=== PATIENT | male | born 1965 | race Caucasian/White ===

== ENCOUNTER → 2017-01-28 | Outpatient (CLI) | payer BC, OTHER ==
[~2017-01-28] MED LIST: MULT-516 PO; NONE PER PT
== END ==
LOC: STAR 13:51
PROVIDERS: ATTEND Orthopaedic Surgery
DX: Z02.9 Encounter for administrative examinations, unspecified (principal)

== ENCOUNTER 2017-02-02 09:47 | Day surgery (SDC) | payer BC, OTHER ==
[~2017-02-02] VITALS: Ht 180.3 cm; Wt 80.0 kg
[2017-02-02] MEDS ORDERED: MIDAZOLAM 1 MG/ML, 2ML ONE (10:43)
[2017-02-02] MEDS ORDERED: FENTANYL PF 100 MCG/2ML ONE (10:43)
[2017-02-02] MEDS ORDERED: LACTATED RINGERS 1,000 ML IV SCH (10:51)
[2017-02-02 10:52] VITALS: BP 117/77
[2017-02-02] MEDS ORDERED: BUPIVACAINE/PF 0.5% ONE (11:18)
[2017-02-02] MEDS ORDERED: EPINEPHRINE 1 MG/ML, 1ML ONE (11:18)
[2017-02-02] MEDS ORDERED: KETOROLAC 30 MG/1 ML ONE (11:28)
[2017-02-02] MEDS ORDERED: ONDANSETRON 2MG/ML, 2ML ONE (11:28)
[2017-02-02] MEDS ORDERED: DEXAMETHASONE 4 MG/ML, 1ML ONE (11:28)
[2017-02-02] MEDS ORDERED: CEFAZOLIN 1,000 MG ONE (11:28)
[2017-02-02] MEDS ORDERED: PROPOFOL 10 MG/ML, 20ML ONE (11:28)
[2017-02-02] MEDS ORDERED: BUPIVACAINE/PF 0.5% INFIL ONE (11:53)
[2017-02-02] MEDS ORDERED: EPINEPHRINE 1 MG/ML, 1ML INFIL ONE (11:54)
[2017-02-02] MEDS ORDERED: PROMETHAZINE 25 MG/ML, 1ML IV PRN (12:00)
[2017-02-02] MEDS ORDERED: LABETALOL 5MG/ML, 20ML IV PRN (12:00)
[2017-02-02] MEDS ORDERED: FENTANYL PF 100 MCG/2ML IV PRN (12:00)
[2017-02-02] MEDS ORDERED: MEPERIDINE/PF 25MG/0.5ML IVPush PRN (12:00)
[2017-02-02] MEDS ORDERED: ACETAMINOPHEN 325 MG TABLET PO PRN (12:00)
[2017-02-02] MEDS ORDERED: ALBUTEROL/IPRATROPIUM 2.5MG/0.5MG, 3 ML NPPB PRN (12:00)
[2017-02-02] MEDS ORDERED: ONDANSETRON 2MG/ML, 2ML IVPush PRN (12:00)
[2017-02-02] MEDS ORDERED: DIAZEPAM 5 MG/ML, 2ML IVPush PRN (12:00)
[2017-02-02] MEDS ORDERED: hydrALAzine 20 MG/ML, 1ML IV PRN (12:00)
[2017-02-02] MEDS ORDERED: METOCLOPRAMIDE 5 MG/ML, 2ML IV PRN (12:00)
[2017-02-02] MEDS ORDERED: HYDROmorphone 1 MG/ML, 1ML IV PRN (12:00)
[2017-02-02] MEDS ORDERED: MIDAZOLAM 1 MG/ML, 2ML IV PRN (12:00)
[2017-02-02] MEDS ORDERED: OXYcodone 5 MG/5 ML ORAL.SOL UDC PO PRN (12:00)
[2017-02-02] MEDS ORDERED: PLEASE ENTER ALLERGIES MC SCH ×2 (12:30)
== END 2017-02-02 13:45 | disposition home or self-care (01) ==
LOC: OUT 09:47
PROVIDERS: ATTEND Orthopaedic Surgery
DX: L72.11 Pilar cyst (principal)
CPT/HCPCS: 26113; 88305; J0171; J0690; J1100; J1885; J2250; J2405; J2704; J3010; J3490

== ENCOUNTER 2020-08-17 12:03 | Outpatient (CLI) | payer OTHER ==
[2020-08-17] MEDS ORDERED: OMNIPAQUE 350 MG/ML, 75ML BOTTLE ONE (12:50)
== END 2020-08-17 23:59 | disposition home or self-care (01) ==
LOC: RAD 12:03
PROVIDERS: ATTEND Family Medicine
DX: R05 Cough (principal)
CPT/HCPCS: 71260; Q9967